=== PATIENT | female | born 1955 | race Caucasian/White ===

== ENCOUNTER → 2018-05-25 | Outpatient (CLI) | payer BC ==
--- NOTE | 2018-05-25 13:22 | US ---
EXAMINATION TYPE: US transvaginal DATE OF EXAM: 05/25/2018 COMPARISON: NONE CLINICAL HISTORY: N95.0 Post menopausal bleeding. Patient started taking BioTE hormone pellets, bleed ing after starting these. Difficult exam due to overlying bowel gas TECHNIQUE: . Transvaginal sonographic images of the pelvis were acquired. Date of LMP: 10 Years ago EXAM MEASUREMENTS: Uterus: 7.2 x 3.3 x 4.3 cm Endometrial Stripe: 0.3 cm Right Ovary: 1.9 x 0.8 x 1.6 cm Left Ovary: 1.9 x 0.9 x 1.3 cm 1. Uterus: Anteverted Nabothian cysts visualized 2. Endometrium: wnl 3. Right Ovary: wnl as visualized, limited visualization due to overlying bowel gas 4. Left Ovary: wnl as visualized, limited visualization due to overlying bowel gas 5. Bilateral Adnexa: wnl 6. Posterior cul-de-sac: wnl Endometrial thickness is within normal limits for a postmenopausal female. However consideration for direct visualization should remain a consideration in this patient with a history of postmenopausal b leeding.
== END | disposition home or self-care (01) ==
LOC: RADUSWWP 11:55
PROVIDERS: ATTEND Obstetrics & Gynecology
DX: N95.0 Postmenopausal bleeding (principal)
CPT/HCPCS: 76830

== ENCOUNTER 2021-05-09 06:33 | Emergency (ER) | payer OTHER ==
[2021-05-09 06:47] VITALS: BP 103/67; PULSE 79; RESP 18; TEMP 98.3
--- NOTE | 2021-05-09 07:00 | ED ---
General Adult HPI - General Chief complaint: Fever Stated complaint: COVID+, wants antibodies Time Seen by Provider: 05/09/21 06:51 Source: patient Mode of arrival: ambulatory Limitations: no limitations - History of Present Illness Initial comments: 65 year-old female patient presents to the emergency department requesting monoclonal antibodies after testing positive for COVID. States she started having symptoms about 7 days ago. She reports fevers, night sweats, cough, and congestion. States she did complete a z-chong and has been taking vitamin D, C, and zinc. She thinks her symptoms are improving but thought she should get antibodies just in case. She has not been vaccinated. She denies any vomiting, diarrhea, chest pain, or shortness of breath. Patient denies any recent rash, abdominal pain, constipation, back pain, numbness, tingling, dizziness, hematuria, dysuria, urinary urgency, urinary frequency, headache, visual changes, or any other complaints. - Related Data Allergies Allergy/AdvReac Type Severity Reaction Status Date / Time No Known Allergies Allergy Verified 05/09/21 06:47 Review of Systems ROS Statement: Those systems with pertinent positive or pertinent negative responses have been documented in the HPI. ROS Other: All systems not noted in ROS Statement are negative. Past Medical History Past Medical History: No Reported History History of Any Multi-Drug Resistant Organisms: None Reported Past Surgical History: No Surgical Hx Reported Past Psychological History: No Psychological Hx Reported Smoking Status: Never smoker Past Alcohol Use History: None Reported Past Drug Use History: None Reported General Exam Limitations: no limitations General appearance: alert, in no apparent distress, other (Physical well- developed, well-nourished adult female in no acute distress.) Eye exam: Present: normal appearance, PERRL, EOMI. Absent: scleral icterus, conjunctival injection, periorbital swelling ENT exam: Present: normal exam, normal oropharynx, mucous membranes moist Respiratory exam: Present: normal lung sounds bilaterally. Absent: respiratory distress, wheezes, rales, rhonchi, stridor Cardiovascular Exam: Present: regular rate, normal rhythm, normal heart sounds. Absent: systolic murmur, diastolic murmur, rubs, gallop, clicks GI/Abdominal exam: Present: soft, normal bowel sounds. Absent: distended, tenderness, guarding, rebound, rigid Neurological exam: Present: alert, oriented X3, CN II-XII intact Psychiatric exam: Present: normal affect, normal mood Skin exam: Present: warm, dry, intact, normal color. Absent: rash Course Vital Signs 05/09/21 06:43 Temperature 98.3 F Pulse Rate 79 Respiratory 18 Rate Blood Pressure 103/67 O2 Sat by Pulse 96 Oximetry Medical Decision Making - Medical Decision Making 65-year-old female patient presents to the emergency department today requesting monoclonal antibody infusion. She started having symptoms for COVID-19 about 7 days ago. Physical examination is unremarkable. Vital signs are within normal range. Unfortunately with new guidelines she does not meet criteria to receive the monoclonal antibody infusion. She does admit that she feels that she is improving. She appears well and is in no distress. We did discuss supportive care. She'll be discharged. Her primary care physician for recheck in 1-2 days. Return parameters were discussed in detail. She verbalizes understanding and agrees with this plan. My attending is Dr. Knowles. Disposition Clinical Impression: COVID-19 Disposition: HOME SELF-CARE Condition: Good Instructions (If sedation given, give patient instructions): Coronavirus Disease 2019 (COVID-19), Fever in Adults (ED) Additional Instructions: Tips to help you feel better: -Maintain adequate fluid intake - especially water. -Rest, you are healing your body will require extra sleep. -Eat even if you do not feel like it - broth, jello, toast are fine if you cannot eat full meals. -Take tylenol and motrin alternating (if you have no allergies or have not been instructed to avoid these medications) to help with body aches and fevers. -Obtain over the counter vitamin C, zinc, and vitamin D3. -Take medications as prescribed. Follow-up with your primary care physician for recheck in 1-2 days. Return for any new, worsening, or concerning symptoms. Is patient prescribed a controlled substance at d/c from ED?: No Referrals: Abby Bueno MD [Primary Care Provider] - 1-2 days Time of Disposition: 07:00
== END 2021-05-09 07:19 | disposition home or self-care (01) ==
LOC: EC 06:33
DX: U07.1 COVID-19 (principal)
CPT/HCPCS: 99283

== ENCOUNTER → 2021-10-19 | Outpatient (CLI) | payer OTHER ==
--- NOTE | 2021-10-21 17:53 | MM ---
Reason for Exam: Screening (asymptomatic). Last mammogram was performed 6 year(s) and 3 month(s) ago. Patient History: Menarche at age 15. First Full-Term at age 19. Postmenopausal. Benign Excisional Biopsy on the left side. Maternal grandmother had breast cancer. Maternal cousin had breast cancer. Risk Values: Suzette 5 year model risk: 1.4%. NCI Lifetime model risk: 5.6%. Prior Study Comparison: 04/13/2010 Bilateral Screening Mammogram, [facility]. 11/08/2012 Bilateral Screening Mammogram, [facility]. 08/12/2015 Bilateral Screening Mammogram, [facility]. Tissue Density: There are scattered fibroglandular densities. Findings: Analyzed By CAD. No suspicious groups of microcalcifications, spiculated or lobular masses, Architectural distortion or other secondary signs of malignancy are mammographically apparent. Overall Assessment: Benign, BI-RAD 2 Management: Screening Mammogram of both breasts in 1 year. A negative mammogram report should not preclude additional follow up of suspicious palpable abnormalities. Patient should continue monthly self breast exam. A clinical breast exam by your physician is recommended on an annual basis and results should be correlated with mammographic findings. Electronically signed and approved by: Rajiv Casarez D.O. Radiologis
== END | disposition home or self-care (01) ==
LOC: RADMAMWWP 13:41
PROVIDERS: ATTEND Family Medicine
DX: Z12.31 Encounter for screening mammogram for malignant neoplasm of breast (principal); Z78.0 Asymptomatic menopausal state; Z80.3 Family history of malignant neoplasm of breast
CPT/HCPCS: 77063; 77067

== ENCOUNTER → 2022-10-20 | Outpatient (CLI) | payer OTHER ==
--- NOTE | 2022-10-20 19:02 | BD ---
EXAMINATION TYPE: Axial Bone Density DATE OF EXAM: 10/20/2022 CLINICAL HISTORY: 67 years old Female. ICD-10 CODE: Z78.0 MENOPAUSAL STATE Height: 64.5 Weight: 151.9 FRAX RISK QUESTIONS: Alcohol (3 or more units per day): no Family History (Parent hip fracture): no Glucocorticoids (More than 3mos): no (Ex: prednisone, prednisolone, methylprednisolone, dexamethasone, and hydrocortisone). History of Fracture in Adulthood: no Secondary Osteoporosis: 1. Type 1 Diabetes: no 2. Hyperthyroidism: no 3. Menopause before 45: no 4. Malnutrition: no 5. Chronic liver disease: no Rheumatoid Arthritis: no Current Tobacco Use: no RISK FACTORS HISTORY OF: Surgery to Spine/Hip(right/left)/Wrist (right/left): no Family History of Osteoporosis: no Active: yes Diet low in dairy products/other sources of calcium: no Postmenopausal woman: yes Lost more than 2 inches in height since high school: no MEDICATIONS: Additional History: EXAM MEASUREMENTS: Bone mineral densitometry was performed using the [employer]. Bone mineral density as measured about the Lumbar spine is: ----- L1-L4(G/cm2): 0.981 T Score Values are as follows: ----- L1: -2.3 ----- L2: -1.7 ----- L3: -1.1 ----- L4: -1.8 ----- L1-L4: -1.7 Z Score Values are as follows: ----- L1: -0.9 ----- L2: 0.2 ----- L3: 0.4 ----- L4: -0.3 ----- L1-L4: -0.2 Bone mineral density : baseline Bone mineral density about the R hip (g/cm2): 0.905 Bone mineral density about the L hip (g/cm2): 0.895 T Score values are as follows: -----R Neck: -1.3 -----L Neck: -1.7 -----R Total: -0.8 -----L Total: -0.9 Z Score values are as follows: -----R Neck: 0.1 -----L Neck: -0.3 -----R Total: 0.3 -----L Total: 0.2 Bone mineral density : baseline FRAX%s: The graph provided illustrates a 9.2% chance for a major osteoporotic fx and a 1.2% chance fo r the hips probability for fx in 10 years time. IMPRESSION: Osteopenia (T Score between -2.5 and -1). There is slightly increased risk of fracture and the patient may be considered for treatment. Re-Screen 2-5 years. NOTE: T-SCORE=SD OF THE YOUNG ADULT MEAN.
--- NOTE | 2022-10-21 17:58 | MM ---
Reason for Exam: Screening (asymptomatic). Last screening mammogram was performed 12 month(s) ago. Patient History: Menarche at age 15. First Full-Term at age 19. Postmenopausal. Benign Excisional Biopsy on the left side. Maternal grandmother had breast cancer. Maternal cousin had breast cancer. Risk Values: Suzette 5 year model risk: 1.4%. NCI Lifetime model risk: 5.4%. Prior Study Comparison: 11/08/2012 Bilateral Screening Mammogram, [facility]. 08/12/2015 Bilateral Screening Mammogram, [facility]. 10/19/2021 Bilateral MG 3D screening mammo w/cad, [facility]. Tissue Density: There are scattered fibroglandular densities. Findings: Analyzed By CAD. There is no suspicious group of microcalcifications or new suspicious mass in either breast. Overall Assessment: Negative, BI-RAD 1 Management: Screening Mammogram of both breasts in 1 year. . Patient should continue monthly self-breast exams. A clinical breast exam by your physician is recommended on an annual basis. This exam should not preclude additional follow-up of suspicious palpable abnormalities. Note on Suzette scores and lifetime risk: 1. A Suzette score greater than 3% is considered moderate risk. If this is the case, consider specialist referral to assess eligibility for a risk reducing agent. 2. If overall lifetime risk for the development of breast cancer is 20% or higher, the patient may qualify for future screening with alternating mammogram and breast MRI. Electronically signed and approved by: Latoya Reddy M.D. Radiologist
== END | disposition home or self-care (01) ==
LOC: RADMAMWWP 08:50
PROVIDERS: ATTEND Family Medicine
DX: Z12.31 Encounter for screening mammogram for malignant neoplasm of breast (principal); M85.89 Other specified disorders of bone density and structure, multiple sites; Z78.0 Asymptomatic menopausal state; Z80.3 Family history of malignant neoplasm of breast
CPT/HCPCS: 77063; 77067; 77080

== ENCOUNTER → 2023-10-23 | Outpatient (CLI) | payer MEDICARE, BC ==
--- NOTE | 2023-10-24 09:10 | MM ---
Reason for Exam: Screening (asymptomatic). Last screening mammogram was performed 12 month(s) ago. Patient History: Menarche at age 15. First Full-Term at age 19. Postmenopausal. Benign Excisional Biopsy on the left side. Maternal grandmother had breast cancer. Maternal cousin had breast cancer. Risk Values: Suzette 5 year model risk: 1.4%. NCI Lifetime model risk: 5.2%. Prior Study Comparison: 08/12/2015 Bilateral Screening Mammogram, [facility]. 10/19/2021 Bilateral MG 3D screening mammo w/cad, [facility]. 10/20/2022 Bilateral MG 3D screening mammo w/cad, [facility]. Tissue Density: There are scattered areas of fibroglandular density. Findings: Analyzed By CAD. There is no suspicious group of microcalcifications or new suspicious mass in either breast. Overall Assessment: Negative, BI-RAD 1 Management: Screening Mammogram of both breasts in 1 year. . Patient should continue monthly self-breast exams. A clinical breast exam by your physician is recommended on an annual basis. This exam should not preclude additional follow-up of suspicious palpable abnormalities. Note on Suzette scores and lifetime risk: 1. A Suzette score greater than 3% is considered moderate risk. If this is the case, consider specialist referral to assess eligibility for a risk reducing agent. 2. If overall lifetime risk for the development of breast cancer is 20% or higher, the patient may qualify for future screening with alternating mammogram and breast MRI. Electronically signed and approved by: Jose Manuel Reza M.D. Radiologis
== END | disposition home or self-care (01) ==
LOC: RADMAMWWP 09:18
PROVIDERS: ATTEND Family Medicine
DX: Z12.31 Encounter for screening mammogram for malignant neoplasm of breast (principal); Z80.3 Family history of malignant neoplasm of breast; Z78.0 Asymptomatic menopausal state
CPT/HCPCS: 77063; 77067

== ENCOUNTER → 2024-10-30 | Outpatient (CLI) | payer MEDICARE, BC ==
--- NOTE | 2024-10-30 16:21 | MM ---
Reason for Exam: Screening (asymptomatic). Last screening mammogram was performed 12 month(s) ago. Patient History: Menarche at age 15. First Full-Term at age 19. Postmenopausal. Patient used Hormonal Contraceptives for 5 years. Benign Excisional Biopsy on the left side. Maternal grandmother had breast cancer. Maternal cousin had breast cancer. Risk Values: Suzette 5 year model risk: 1.4%. NCI Lifetime model risk: 5.0%. Prior Study Comparison: 10/19/2021 Bilateral MG 3D screening mammo w/cad, [facility]. 10/20/2022 Bilateral MG 3D screening mammo w/cad, [facility]. 10/23/2023 Bilateral MG 3D screening mammo w/cad, [facility]. Tissue Density: There are scattered areas of fibroglandular density. Findings: Analyzed By CAD. There is no suspicious group of microcalcifications or new suspicious mass in either breast. Overall Assessment: Negative, BI-RAD 1 Management: Screening Mammogram of both breasts in 1 year. Patient should continue monthly self-breast exams. A clinical breast exam by your physician is recommended on an annual basis. This exam should not preclude additional follow-up of suspicious palpable abnormalities. Note on Suzette scores and lifetime risk: 1. A Suzette score greater than 3% is considered moderate risk. If this is the case, consider specialist referral to assess eligibility for a risk reducing agent. 2. If overall lifetime risk for the development of breast cancer is 20% or higher, the patient may qualify for future screening with alternating mammogram and breast MRI. [facility], , 10/30/2024 4:19 PM. Electronically signed and approved by: Latoya Reddy M.D. Radiologist
--- NOTE | 2024-10-30 16:38 | BD ---
EXAMINATION TYPE: Axial Bone Density DATE OF EXAM: 10/30/2024 CLINICAL HISTORY: 69 years old Female. ICD-10 CODE: Z78.0 POST MENOPAUSAL , Additional History: Height: 5 ft 3 1/2 in Weight: 156 FRAX RISK QUESTIONS: Alcohol (3 or more units per day): no Family History (Parent hip fracture): no Glucocorticoids (More than 3mos): no (Ex: prednisone, prednisolone, methylprednisolone, dexamethasone, and hydrocortisone). History of Fracture in Adulthood: no Secondary Osteoporosis: 1. Type 1 Diabetes: no 2. Hyperthyroidism: no 3. Menopause before 45: no 4. Malnutrition: no 5. Chronic liver disease: no Rheumatoid Arthritis: no Current Tobacco Use: no RISK FACTORS HISTORY OF: Surgery to Spine/Hip(right/left)/Wrist (right/left): no MEDICATIONS: Thyroid Medications: no Osteoporosis Medications: no EXAM MEASUREMENTS: Bone mineral densitometry was performed using the [employer] System. Bone mineral density as measured about the Lumbar spine is: ----- L1-L4(G/cm2): 1.005 T Score Values are as follows: ----- L1: -2.6 ----- L2: -1.4 ----- L3: -0.7 ----- L4: -1.4 ----- L1-L4: -1.5 Z Score Values are as follows: ----- L1: -1.2 ----- L2: 0.1 ----- L3: 0.7 ----- L4: 0.0 ----- L1-L4: 0.0 Bone mineral density has: increased 2.4 % since study of: 2022 Bone mineral density about the R hip (g/cm2): 0.817 Bone mineral density about the L hip (g/cm2): 0.814 T Score values are as follows: -----R Neck: -1.6 -----L Neck: -1.6 -----R Total: -0.8 -----L Total: -0.7 Z Score values are as follows: -----R Neck: -0.2 -----L Neck: -0.2 -----R Total: 0.3 -----L Total: 0.4 Bone mineral density has: increased 1.0 % since study of: 2022 FRAX%s: The graph provided illustrates a 9.7 % chance for a major osteoporotic fx and a 1.2 % chance for the hips probability for fx in 10 years time. IMPRESSION: Osteopenia (T Score between -2.5 and -1). There is slightly increased risk of fracture and the patient may be considered for treatment. Re-Screen 2-5 years. NOTE: T-SCORE=SD OF THE YOUNG ADULT MEAN. [facility], , 10/30/2024 4:36 PM
== END | disposition home or self-care (01) ==
LOC: RADMAMWWP 15:01
PROVIDERS: ATTEND Family Medicine
DX: Z12.31 Encounter for screening mammogram for malignant neoplasm of breast (principal); R92.323 Mammographic fibroglandular density, bilateral breasts; M81.0 Age-related osteoporosis without current pathological fracture; M85.89 Other specified disorders of bone density and structure, multiple sites; Z78.0 Asymptomatic menopausal state; Z80.3 Family history of malignant neoplasm of breast; Z92.0 Personal history of contraception
CPT/HCPCS: 77063; 77067; 77080

== ENCOUNTER → 2024-11-04 | Outpatient (CLI) | payer MEDICARE, BC ==
--- NOTE | 2024-11-04 22:40 | US ---
EXAMINATION TYPE: US thyroid st tissue head/neck DATE OF EXAM: 11/04/2024 COMPARISON: NONE CLINICAL INDICATION: Female, 69 years old with history of L04.9 ACUTE LYMPHADENITIS, UNSPECIFIED; Pat ient had felt a lump posterior right neck x a month. It has gotten smaller - patient barely feels are a now. TECHNIQUE: Scanned posterior right neck at palpable area of concern. FINDINGS: *Hypoechoic area with vascular hilum seen at area of concern within the posterior right ne ck: 1.3 x 0.7 x 0.4 cm. IMPRESSION: 1. Small lymph node posterior right neck palpable region [facility], , 11/04/2024 10:37 PM
== END | disposition home or self-care (01) ==
LOC: RADUSWWP 16:12
PROVIDERS: ATTEND Family Medicine
DX: L04.9 Acute lymphadenitis, unspecified (principal)
CPT/HCPCS: 76536